=== PATIENT | female | born 1970 | race Caucasian/White ===

== ENCOUNTER → 2019-07-20 15:49 | Outpatient (CLI) | payer OTHER, SELFPAY ==
--- NOTE | ~2019-07-20 | US_ITS ---
EXAMINATION: US thyroid DATE: 07/20/2019 16:15 INDICATION: Disorder of thyroid, unspecified. TECHNIQUE: Multiple ultrasound images of the thyroid were obtained. COMPARISON: None. FINDINGS: The right thyroid lobe measures 5.7 x 1.2 x 1.3 cm. The left thyroid lobe measures 5.6 x 1.8 x 1.6 c m. In the left thyroid lobe, there is a 2.6 cm solid, hypoechoic, qdoqm-mgis-uasq nodule with smooth margin and peripheral calcifications (TI-RADS TR4). In the left thyroid lobe, there is a 1.1 cm mag d, hypoechoic, vqfxe-wlkj-osrq nodule with smooth margin without echogenic foci (TR4). In the left th yroid lobe, there is a 1.5 cm solid, hypoechoic, wjkta-xpnf-ibpz nodule with ill-defined margin witho ut echogenic foci (TR4). In the right thyroid lobe, there is a 1.4 cm almost completely cystic nodule (TR1). IMPRESSION: 1. Multinodular goiter. Ultrasound-guided fine-needle aspiration of the 2.6 cm and 1.5 cm left thyroi d nodules is recommended. Reviewed, dictated and finalized at location A. RESCUE CRAFTSMAN IMPRESSION: 1. Multinodular goiter. Ultrasound-guided fine-needle aspiration of the 2.6 cm and 1.5 cm left thyroid nodules is recommended.
== END ==
PROVIDERS: PCP Family Medicine; Visit Provider Physician Assistant
DX: E04.2 Nontoxic multinodular goiter (principal)
CPT/HCPCS: 76536

== ENCOUNTER 2019-08-05 13:10 | Outpatient (CLI) | payer OTHER, SELFPAY ==
--- NOTE | ~2019-08-05 | US_ITS ---
EXAMINATION: US FNA additional, US FNA w image guidance DATE: 08/05/2019 14:17 INDICATION: Nontoxic thyroid nodules TECHNIQUE: A time-out was performed to verify the patient's name, date of , and procedure to be performed . The procedure and its benefits and risks were discussed with the patient. Risks specifically discus sed included bleeding and infection. The patient understood the risks and agreed to proceed. The neck was prepped and draped in the usual sterile manner. 4 mL 1% lidocaine was used for local anesthesia . 6 passes were made with a 25G needle into the nodule at the inferior pole of the left thyroid. Subs equently 6 passes were with a 25G needle into the nodule at the mid left thyroid. Appropriate needle location was documented with continuous sonographic guidance. A sterile bandage was applied. There w ere no immediate complications. FINDINGS: Grayscale ultrasound images demonstrate biopsy needles advanced first into a 1.6 x 1.3 x 1.3 cm solid isoechoic nodule with internal echogenic foci at the inferior left thyroid. Subsequent images demons trate biopsy needles advanced into the 2.4 x 1.6 x 1.9 cm peripherally calcified solid and cystic nod ule at the mid left thyroid. IMPRESSION: 1. Successful ultrasound-guided fine needle aspiration of a pair of nodules in the mid and inferior left thyroid. Reviewed, dictated and finalized at location A. DIEM NURSE IMPRESSION: 1. Successful ultrasound-guided fine needle aspiration of a pair of nodules in the mid and inferior left thyroid.
== END 2019-08-05 13:11 | disposition home or self-care (01) ==
PROVIDERS: PCP Family Medicine; Visit Provider Family Medicine
DX: E04.1 Nontoxic single thyroid nodule (principal)
CPT/HCPCS: 10005; 10006; 88108; 88173

== ENCOUNTER 2020-03-30 15:09 | Outpatient (CLI) | payer OTHER, SELFPAY ==
--- NOTE | ~2020-03-30 | MM_ITS ---
EXAMINATION: MM screening arpit BI w bucky HISTORY: Screening TECHNIQUE: Craniocaudal and mediolateral oblique 3-D tomosynthesis images were obtained and synthetic 2-D images were generated. CAD analysis was submitted and interpreted. COMPARISON: Comparison to multiple prior studies sequentially, with oldest reviewed study dated 04/23. BREAST PARENCHYMAL COMPOSITION: There are scattered areas of fibroglandular density. FINDINGS: There is a mass in the subareolar location of the left breast measuringr 6 mm. The right br east is stable without evidence for malignancy. IMPRESSION: 1. New 6 mm left breast mass. 2. Additional mammographic views and possible breast ultrasound are recommended. BI-RADS Category 0: Incomplete: Needs additional imaging evaluation. Reviewed, dictated and finalized at location A. IMPRESSION: 1. New 6 mm left breast mass. 2. Additional mammographic views and possible breast ultrasound are recommended . BI-RADS Category 0: Incomplete: Needs additional imaging evaluation.
== END 2020-03-30 15:10 | disposition home or self-care (01) ==
LOC: ANHIMG 15:11
PROVIDERS: PCP Family Medicine; Visit Provider Obstetrics & Gynecology
DX: Z12.31 Encounter for screening mammogram for malignant neoplasm of breast (principal); R92.8 Other abnormal and inconclusive findings on diagnostic imaging of breast
CPT/HCPCS: 77063; 77067

== ENCOUNTER 2020-04-24 13:52 | Outpatient (CLI) | payer OTHER, SELFPAY ==
--- NOTE | ~2020-04-24 | MMUS_ITS ---
EXAMINATION: MM diagnostic mammo unilat LT, US breast LT limited HISTORY: Follow-up left breast mass TECHNIQUE: Additional 3-D tomosynthesis images of the left breast were performed and synthetic 2-D im ages were generated. CAD analysis was submitted and interpreted. High resolution left breast ultrasou nd was performed. COMPARISON: Comparison to multiple prior studies sequentially, with oldest reviewed study dated 11/2013. BREAST PARENCHYMAL COMPOSITION: Breast composed of scattered areas of fibroglandular density. FINDINGS: MAMMOGRAPHIC FINDINGS: There is a persistent circumscribed 6 mm mass in the subareolar location of the left breast at approx imately the 12:00 position. ULTRASOUND: Left breast ultrasound: In the retroareolar region of the left breast there is a 4 mm cyst corresponding to the mass identifi ed on mammography. IMPRESSION: 1. No evidence for malignancy in the left breast. Benign cyst. 2. Routine yearly screening mammogram and regular clinical breast examination are recommended. BI-RADS Category 2: Benign finding(s). Reviewed, dictated and finalized at location A. NESS CONSULT IMPRESSION: 1. No evidence for malignancy in the left breast. Benign cyst. 2. Routine yearly screening mammogram and regular clinical breast examination a re recommended. BI-RADS Category 2: Benign finding(s).
== END 2020-04-24 13:53 | disposition home or self-care (01) ==
PROVIDERS: PCP Family Medicine; Visit Provider Obstetrics & Gynecology
DX: R92.8 Other abnormal and inconclusive findings on diagnostic imaging of breast (principal)
CPT/HCPCS: 76642; 77065

== ENCOUNTER → 2021-02-08 12:19 | Outpatient (CLI) | payer OTHER, SELFPAY ==
--- NOTE | ~2021-02-08 | MR_ITS ---
EXAMINATION: MR cervical spine wo con DATE: 02/08/2021 13:22 INDICATION: Neck pain. Left-sided radiculopathy. TECHNIQUE: Magnetic resonance imaging (MRI) of the cervical spine was performed without intravenous c ontrast. Sequences included sagittal T2-weighted FSE, sagittal STIR FSE, sagittal T1-weighted FSE, ax ial MERGE, and axial T2-weighted FSE. COMPARISON: Thyroid ultrasound 08/05/2019. FINDINGS: There is kyphosis of cervical spine. Vertebral body heights are normal. There is moderately decreased disc height at C3-C4 and mildly decreased disc height at C5-C6. The spinal cord signal int ensity is normal. There is a 1.5 cm nodule in left thyroid lobe with benign pathology at biopsy on . The following disc levels are specifically discussed: C2-C3: There is a central extrusion. There is no uncovertebral joint osteoarthritis. There is mild bi lateral facet joint osteoarthritis. There is no neural foraminal stenosis. There is no central canal stenosis. C3-C4: The disc is bulging. There is severe bilateral uncovertebral joint osteoarthritis. There is mi ld bilateral facet joint osteoarthritis. There is mild bilateral neural foraminal stenosis. There is mild central canal stenosis with ventral indentation of the spinal cord. C4-C5: The disc is bulging. There is mild right uncovertebral joint osteoarthritis. There is severe r ight and moderate left facet joint osteoarthritis. There is mild right neural foraminal stenosis. The re is mild central canal stenosis. C5-C6: There is a large central extrusion with inferior extension to the C6-C7 disc level. There is m ild bilateral uncovertebral joint osteoarthritis. There is moderate right and mild left facet joint o steoarthritis. There is mild right neural foraminal stenosis. There is severe central canal stenosis with ventral and dorsal indentation of the spinal cord. C6-C7: The disc is bulging. There is mild bilateral uncovertebral joint osteoarthritis. There is mild right facet joint osteoarthritis. There is no neural foraminal stenosis. There is mild central canal stenosis. C7-T1: The disc does not extend beyond the endplate margin. There is no uncovertebral joint osteoarth ritis. There is severe right and moderate left facet joint osteoarthritis. There is mild bilateral ne ural foraminal stenosis. There is no central canal stenosis. IMPRESSION: 1. Severe cervical spondylosis. Of note, a large extrusion at C5-C6 causes severe central canal steno sis at C6. Reviewed, dictated and finalized at location B. IMPRESSION: 1. Severe cervical spondylosis. Of note, a large extrusion at C5-C6 causes odilon re central canal stenosis at C6.
== END ==
PROVIDERS: PCP Family Medicine; Visit Provider Chiropractor
DX: M54.2 Cervicalgia (principal); M47.812 Spondylosis without myelopathy or radiculopathy, cervical region; M48.02 Spinal stenosis, cervical region
CPT/HCPCS: 72141

== ENCOUNTER → 2022-07-17 08:36 | Outpatient (CLI) | payer BC, SELFPAY ==
--- NOTE | ~2022-07-17 | MR_ITS ---
MRI of the lumbar spine Clinical History: Back pain, right-sided sciatica Technique: Axial T2-weighted images, and sagittal T1-weighted, T2-weighted, and T2 fat-sat images wer e acquired. Following intravenous administration of 18 cc MultiHance gadolinium, T1-weighted fat-sat imaging was performed in the axial and sagittal planes. Findings: There is posterior fusion hardware from L4 to L5, with bilateral rods and transpedicular sc rews present. This fusion cage present at the L4-L5 disc space, fusion across the disc space. There i s associated L5 laminectomy. No acute fracture or subluxation seen. No other bone marrow signal abnor mality is identified. At L1-L2, there is no disc bulge or herniation. No spinal canal stenosis or neural foraminal narrowin g. At L2-L3, there is no disc bulge or herniation. There is mild to moderate facet arthropathy. No spina l canal stenosis or neural foraminal narrowing. L3-L4, there is degenerative disc narrowing with disc bulge and facet arthropathy. These factors cont ribute to moderate to severe thecal sac compression at this level. Bilateral neural foramina are pres erved. At L4-L5, there is no disc bulge or herniation. No spinal canal stenosis or neural foraminal narrowin g. At L5-S1, there is very small central disc protrusion, with moderate facet arthropathy. No spinal can al stenosis. No definite neural foraminal narrowing. Paravertebral soft tissues are unremarkable aside from expected postoperative changes at the surgical level. No abnormal postcontrast enhancement identified. Impression: Multifactorial moderate to severe thecal sac compression/spinal canal stenosis at L3-L4, as detailed above. Postoperative changes at the L4-L5 level, as detailed above. Minimal degenerative change at L5-S1, as detailed above. Reviewed, dictated and finalized at location M. ROOM ATTENDANT Impression: Multifactorial moderate to severe thecal sac compression/spinal canal stenosis at L3-L4, as detailed above. Postoperative changes at the L4-L5 level, as detailed above. Minimal degenerative change at L5-S1, as detailed above.
== END ==
PROVIDERS: PCP Family Medicine; Visit Provider Chiropractor
DX: M51.37 Other intervertebral disc degeneration, lumbosacral region (principal)
CPT/HCPCS: 72158; A9577

== ENCOUNTER → 2022-11-22 13:22 | Outpatient (CLI) | payer BC, SELFPAY ==
--- NOTE | ~2022-11-22 | CT_ITS ---
EXAMINATION: CT cervical spine wo con DATE: 11/22/2022 13:43 INDICATION: Neck pain. TECHNIQUE: Computed tomography (CT) of the cervical spine was performed without intravenous contrast. Automated exposure control and iterative reconstruction technique were employed. The dose-length pro duct was 361.48 mGy-cm. COMPARISON: Cervical spine MRI 02/08/2021, thyroid ultrasound 07/20/19 FINDINGS: Again seen is a 1.9 cm nodule in left thyroid lobe status post benign biopsy on 08/05/19. Th ere is mild kyphosis of cervical spine. Vertebral body heights are normal. There are changes of anter ior fusion procedures at C5-C6 with interbody devices and screws. There is moderately decreased disc height at C3-C4 and mildly decreased disc height at C4-C5. The following disc levels are specifically discussed: C2-C3: There is mild left uncovertebral joint osteoarthritis. There is mild bilateral facet joint ost eoarthritis. There is mild left neural foraminal stenosis. There is mild central canal stenosis. C3-C4: There is severe bilateral uncovertebral joint osteoarthritis. There is severe bilateral facet joint osteoarthritis. There is mild bilateral neural foraminal stenosis. There is mild central canal stenosis. C4-C5: There is mild bilateral uncovertebral joint osteoarthritis. There is severe bilateral facet keyonna int osteoarthritis. There is mild right neural foraminal stenosis. There is mild central canal stenos is. C5-C6: There is no uncovertebral joint hypertrophy. There is moderate right and mild left facet joint osteoarthritis. There is no neural foraminal stenosis. There is no central canal stenosis. C6-C7: There is mild right and moderate left uncovertebral joint hypertrophy. There is severe right a nd moderate left facet joint osteoarthritis. There is mild bilateral neural foraminal stenosis. There is no central canal stenosis. C7-T1: There is no uncovertebral joint osteoarthritis. There is severe bilateral facet joint osteoart hritis. There is mild bilateral neural foraminal stenosis. There is no central canal stenosis. IMPRESSION: 1. Moderate cervical spondylosis. 2. Anterior fusion procedures at C5-C6 and C6-C7. Reviewed, dictated and finalized at location A.
== END ==
PROVIDERS: PCP Family Medicine
DX: M47.812 Spondylosis without myelopathy or radiculopathy, cervical region (principal); Z98.1 Arthrodesis status
CPT/HCPCS: 72125

== ENCOUNTER → 2023-03-05 12:50 | Outpatient (CLI) | payer BC, SELFPAY ==
--- NOTE | ~2023-03-05 | MR_ITS ---
EXAMINATION: MR cervical spine wo/w con DATE: 03/05/2023 13:35 INDICATION: Chronic neck pain. Bilateral arm weakness. TECHNIQUE: Magnetic resonance imaging (MRI) of the cervical spine was performed without with 19 mL Mu ltiHance intravenous contrast. COMPARISON: Cervical spine MRI 02/08/2021, CT 11/22/2022 FINDINGS: There is kyphosis of cervical spine. There are changes of anterior fusion procedures at C5- C6 and C6-C7 with interbody devices. There is moderately decreased disc height at C3-C4 and mildly de creased disc height at C4-C5. The following disc levels are specifically discussed: C2-C3: The disc does not extend beyond the endplate margin. There is mild left uncovertebral joint os teoarthritis. There is severe bilateral facet joint osteoarthritis. There is mild left neural foramin al stenosis. There is no central canal stenosis. C3-C4: This is bulging. There is severe bilateral uncovertebral joint osteoarthritis. There is severe bilateral facet joint osteoarthritis. There is mild right and moderate left neural foraminal stenosi s. There is mild central canal stenosis with ventral indentation of the spinal cord. C4-C5: The disc is bulging. There is mild bilateral uncovertebral joint osteoarthritis. There is odilon re bilateral facet joint osteoarthritis. There is mild bilateral neural foraminal stenosis. There is mild central canal stenosis. C5-C6: There is no uncovertebral joint hypertrophy. There is no facet joint hypertrophy. There is no neural foraminal stenosis. There is no central canal stenosis. C6-C7: There is moderate right and severe left uncovertebral joint hypertrophy. There is severe right and moderate left facet joint hypertrophy. There is mild right and moderate left neural foraminal st enosis. There is no central canal stenosis. C7-T1: There is a central protrusion. There is no uncovertebral joint osteoarthritis. There is severe bilateral facet joint osteoarthritis. There is mild bilateral neural foraminal stenosis. There is no central canal stenosis. IMPRESSION: 1. Moderate cervical spondylosis. 2. Anterior fusion procedures at C5-C6 and C6-C7. Reviewed, dictated and finalized at location A.
== END ==
PROVIDERS: PCP Family Medicine; Visit Provider Chiropractor
DX: R20.0 Anesthesia of skin (principal); M47.892 Other spondylosis, cervical region; Z98.1 Arthrodesis status
CPT/HCPCS: 72156; A9577

== ENCOUNTER 2024-02-19 15:33 | Outpatient (CLI) | payer BC, SELFPAY ==
--- NOTE | ~2024-02-19 | US_ITS ---
EXAMINATION: US carotid duplex BI DATE: 02/19/2024 16:13 INDICATION: Muscle spasms left neck TECHNIQUE: Grayscale, color Doppler, and pulsed Doppler images of the cervical carotid arteries were obtained. The degree of vessel stenosis is placed in one of the following categories: normal, <50%, 5 0-69%, >=70% but less than near-occlusion, near-occlusion, or total occlusion. Note that percent sten osis relative to normal distal artery lumen diameter is indirectly measured from velocity measurement s as described by Isai, et al. Radiology 2003; [id number]:340-346. Notes: Normal: Peak systolic velocity <125 centimeters/sec and no plaque <50%. Peak systolic velocity <125 ( EDV <40; ICA/CCA PSV ratio <2.0; used these factors only a tandem lesions or low cardiac output or co ntralateral disease) 50-69 %: PSV 125-230 (EDV 40-100; ratio 2-4) >= 70% but less than near occlusion: PSV greater than 230 (EDV > 100; ratio> 4.0) Near Occlusion: PSV that is variable; markedly narrowed lumen Occlusion: Absent flow on color/spectral Doppler and no lumen on bliss scale. COMPARISON: None. FINDINGS: RIGHT: The right common carotid artery (CCA) peak systolic velocity (PSV) is 85 cm/s. The right internal car otid artery (ICA) PSV is 49 cm/s. The right ICA end-diastolic velocity (EDV) is 25 cm/s. The right IC A/CCA PSV ratio is 0.9. The external carotid artery (ECA) PSV is 104 cm/s. There is antegrade flow in the right vertebral artery. LEFT: The left CCA PSV is 79 cm/s. The left ICA PSV is 65 cm/s. The left ICA EDV is 22 cm/s. The left ICA/C CA PSV ratio is 0.8. The ECA PSV is 76 cm/s. There is antegrade flow in the left vertebral artery. IMPRESSION: 1. Less than 50% stenosis in the right internal carotid artery by sonographic criteria. 2. Less than 50% stenosis in the left internal carotid artery by sonographic criteria. Reviewed, dictated and finalized at location B. IMPRESSION: 1. Less than 50% stenosis in the right internal carotid artery by sonographic c walt. 2. Less than 50% stenosis in the left internal carotid artery by sonographic cr srini.
== END 2024-02-19 15:34 | disposition home or self-care (01) ==
LOC: ANHIMG 15:39
PROVIDERS: PCP Family Medicine; Visit Provider Student in an Organized Health Care Education/Training Program
DX: I65.23 Occlusion and stenosis of bilateral carotid arteries (principal)
CPT/HCPCS: 93880

== ENCOUNTER 2024-06-09 15:53 | Outpatient (CLI) | payer BC, SELFPAY ==
--- NOTE | ~2024-06-09 | MM_ITS ---
EXAMINATION: MM screening arpit BI w bucky HISTORY: Screening TECHNIQUE: Craniocaudal and mediolateral oblique 3-D tomosynthesis images were obtained and synthetic 2-D images were generated. CAD analysis was submitted and interpreted. COMPARISON: Comparison to multiple prior studies sequentially, with oldest reviewed study dated 04/23. BREAST PARENCHYMAL COMPOSITION: Not dense: There are scattered areas of fibroglandular density. FINDINGS: There is no evidence of suspicious mass, calcification, or architectural distortion to sugg est malignancy in either breast. There has been no suspicious interval change. IMPRESSION: 1. No mammographic evidence of malignancy. 2. Recommend routine screening mammography in one year. BI-RADS Category 1: Negative Reviewed, dictated and finalized at location B. CAD DETAILER
== END 2024-06-09 15:54 | disposition home or self-care (01) ==
LOC: ANHIMG 15:54
PROVIDERS: PCP Family Medicine; Visit Provider Student in an Organized Health Care Education/Training Program
DX: Z12.31 Encounter for screening mammogram for malignant neoplasm of breast (principal)
CPT/HCPCS: 77063; 77067

== ENCOUNTER 2024-10-06 10:41 | Outpatient (CLI) | payer BC, SELFPAY ==
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
--- OUTSIDE RECORDS SUMMARY | 2024-10-06 11:58 | XMS_ITS | Clinical Summary ---
Author Organization [facility] Address [address] [place] [address] Care Team Providers Care Bakery Products Checker Name Role Phone Isaiah Rose MD Primary Care Provider [phone] Source Comments [facility],non-owned Affiliates and Associated Physician Practices is amultiple site organization consisting of ambulatory clinics and hospital sitesin [place], [place], [place] and [place]. This disclosure is being madepursuant to the Care Everywhere program and may not contain all information available regarding this patient. Last updated 18.[facility] Allergies Active Allergy Reactions Criticality Noted Date Comments Latex Rash Medium 08/04/2013 Suture Material Rash Medium 08/04/2013 Medications * Be aware that medications may not be up to date on this document. Alwaysverify current medications with the patient. Venlafaxine HCl (EFFEXOR PO) Active OMEPRAZOLE PO Active AmLODIPine Besylate (NORVASC PO) Active ATORVASTATIN CALCIUM PO Active Montelukast Sodium (SINGULAIR PO) Activ e Valsartan (DIOVAN PO) Active fluticasone propionate (FLONASE) 50 MCG/ACT nasal sprayIndication s:Acute maxillary sinusitis, recurrence not specified [place] 2 sprays into each nostril once daily 1 bottles 8 Active meclizine (ANTIVERT) 25 MG tablet Take 1 tablet by mouth 3 times daily as needed for Dizziness 30 tablet 8 Active albuterol HFA (PROVENTIL;VENT ARJUN;PROAIR) 108 (90 BASE) MCG/ACT inhalerIndicati ons:Hx of wheezing Inhale 2 puffs by mouth every 6 hours as needed 1 Inhaler 9 Active Additional Information Patient not taking.Reported on 10/24/2020 Family History Medical History Relation Name Comments Cancer - Colon Father Diabetes - Type 2 Father Hypertension Father Diabetes - Type 2 Mother Hypertension Mother Relation Name Status Comments Father Mother Social History Tobacco Use Types Packs/Day Years Used Date Smoking Tobacco: Never Smokeless Tobacco: Never PHQ-2 Answer Date Recorded PHQ2 TOTAL SCORE 0 10/24/2020 Comments No Sex and Gender Information Value Date Recorded Sex Assigned at Not on file 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 Gender Identity Not on file Sexual Orientation Not on file Last Filed Vital Signs Vital Sign Reading Time Taken Comments Blood Pressure 122/82 10/24/2020 6:30 PM CDT Pulse 97 10/24/2020 6:30 PM CDT Temperature 36.6 C (97.8 F) 10/24/2020 6:30 PM CDT Respiratory Rate 18 10/24/2020 6:30 PM CDT Oxygen Saturation 98% 10/24/2020 6:30 PM CDT Inhaled Oxygen Concentration - - Weight 86.2 kg (190 lb) 10/24/2020 6:30 PM CDT Height 152.4 cm (5') 10/24/2020 6:30 PM CDT Body Mass Index 37.11 10/24/2020 6:30 PM CDT Plan of Treatment Health Maintenance Due Date Last Done Comments COLOGUARD (AGES 45-75) - COL ON CA SCREENING 1972 COLON MONITORING 1972 COLONOSCOPY - COLON CA SCREENING 1972 CT COLONOGRAPHY - COLON CA SCREENING 1972 Colorectal Cancer Screening 1972 FIT - COLON CA SCREENING 1972 FLEX SIG - COLON CA SCREENING 1972 MAMMOGRAM 1972 HIV SCREENING 02/08/1987 HEPATITIS C SCREENING 02/04/1990 DTAP/TDAP/TD VACCINES (1 - Tdap) 02/08/1991 HEPATITIS B VACCINE (1 of 3 - + 3-dose series) 02/08/1991 SCREENING FOR DIABETES 10/24/2020 PNEUMOCOCCAL VACCINE 50+ (1 of 1 - PCV) 02/08/2022 ZOSTER VACCINE (1 of 2) 02/08/2022 COVID-19 VACCINE (2 - 2023-2 5 season) 2024 08/27/2020 DEPRESSION SCREENING 06/23/2024 INFLUENZA VACCINE (Season Ended) 2025 HIB VACCINE Aged Out No longer eligi ble based on patient's age to complete this topic HPV VACCINE Aged Out No longer eligi ble based on patient's age to complete this topic MENINGOCOCCAL (Group B) VACC INE SHARED DECISION-MAKING Aged Out No longer eligibl e based on patient's age to complete this topic MENINGOCOCCAL GROUPS A/C/Y/W VACCINE Aged Out No longer eligible b ased on patient's age to complete this topic Insurance [facility] Advance Directives Documents on File Type Date Recorded 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
--- OUTSIDE RECORDS SUMMARY | 2024-10-06 11:58 | XMS_ITS | Continuity of Care Document ---
Author Organization [facility] Address [address] [place] [address] [place] [address] Phone Care Team Providers Care Strike Warfare/Missile Systems Officer Name Role Phone Isaiah Rose MD Unavailable Unavailable Allergies, Adverse Reactions, Alerts Substance Reaction Status Criticality No Known Allergies Active No Inform ation Medications Medication Instructions Dosage Effective Dates (start - stop) Status Comments Cipro 500 mg tablet take 1 tablet by ora l route every 12 hours 500 MG - Active Adderall 20 mg tablet take 1.5 Tablet (3 0MG) by oral route every day 30 MG - Active omeprazole 20 mg capsule,delayed release take 1 capsule by oral route every day before a meal 20 MG - Active Diovan 320 mg tablet take 1 tablet (320M G) by oral route every day 320 MG - Active metformin ER 750 mg tablet,extended release 24 hr take 1 tablet (750MG) by oral route every day with the evening meal 750 MG - Active Lipitor 40 mg tablet take 1 tablet (40MG ) by oral route every day 40 MG - Active Amaryl 2 mg tablet take 1 tablet (2MG) by oral route every day - Active Procedures Procedure Date OFFICE/OUTPATIENT VISIT, EST OFFICE/OUTPATIENT VISIT, EST PREV VISIT, EST, AGE 40-64 OFFICE/OUTPATIENT VISIT, EST PREV VISIT, EST, AGE 40-64 OFFICE/OUTPATIENT VISIT, EST OFFICE/OUTPATIENT VISIT, EST OFFICE/OUTPATIENT VISIT, EST OFFICE/OUTPATIENT VISIT, EST Advance Directives Directive Yes / No Effective Date File Name No Information Encounters Encounter Description Practice Location Reason(s) For Visit Diagnoses Date Provider Providers Copied on Encounter [facility], [address], [place], [place], [id number], tel:[phone] [facility] No Information 8 5 Milton Colon. [address], [place], [place], [address] , [place]. tel:[phone] [facility], [address], [place], [place], [address], [place] tel:[phone] [facility] No Information 5 Milton Colon. [address], [place], [place], [address] , [place]. tel:[phone] Referring Provider: Isaiah Rose, [address], [place], [place], [address]. tel:[phone] [facility], [address], [place], [place], [address], [place] tel:[phone] [facility] No Information 5 Milton Colon. [address], [place], [place], [address] , [place]. tel:[phone] [facility], [address], [place], [place], [address], [place] tel:[phone] [facility] No Information 5 Milton Colon. [address], [place], [place], [address] , [place]. tel:[phone] OFFICE/OUTPA TIENT VISIT, EST [facility], [address], [place], [place], [address], [place] tel:[phone] [facility] proteinuria (chief complaint)DM (chief complaint)HL P (chief complaint)GE RD (chief complaint)Si nus (chief complaint) Dietary surveillance and counselingDiabete s Mellitus Type 2, UncomplicatedOthe r and unspecified hyperlipidemiaPro teinuriaGERD Sep- 5 Rose Isaiah. [address], [address], [place], [place], [address] , . tel:[phone] Referring Provider: Isaiah Rose, [address], [place], [place], [address]. tel:[phone] OFFICE/OUTPA TIENT VISIT, EST [facility], [address] [place], [address], [place] tel:[phone] [facility] proteinuria (chief complaint)Fa tty liver (chief complaint)TG (chief complaint)GE RD (chief complaint) Dietary surveillance and counselingDiabeti c NephropathyHypert ension, UnspecifiedAttent ion deficit disorder of childhood without mention of hyperactivityGERD 4 Milton Colon. [address], [address], [place], [place], [address] , . tel:[phone] Referring Provider: [facility] [address] [place], [place], [address]. tel:[phone] PREV VISIT, EST, AGE 40-64 [facility], [address] [place], [address], [place] tel:[phone] [facility] Physical (chief complaint) Dietary surveillance and counselingRoutine Medical ExamRoutine Medical Exam 4 Milton Colon. [address], [address] [place], [address] , [place]. tel:[phone] Referring Provider: Isaiah Rose, [address], [place], [place], [address]. tel:[phone] OFFICE/OUTPA TIENT VISIT, EST [facility], [address] [place], [address], tel:[phone] [facility] GERD (chief complaint)HT N (chief complaint)AD D (chief complaint)HL P (chief complaint)DM (chief complaint) Dietary surveillance and counselingHyperte nsion, UnspecifiedOther and unspecified hyperlipidemiaDia betes Mellitus Type 2, UncomplicatedGERD 4 Milton Colon. [address], [address], [place], [place], [address] , [place]. tel:[phone] Referring Provider: Isaiah Rose, [address], [place], [place], [address]. tel:[phone] PREV VISIT, EST, AGE 40-64 [facility], [address], [place], [place], [address], [place] tel:[phone] [facility] Physical (chief complaint) Unspecified chronic liver disease without mention of alcoholDietary surveillance and counselingRoutine Medical ExamGERDOther and unspecified hyperlipidemiaRou torrey Medical Exam 3 Milton Colon. [address], [address], [place], [place], [address] , [place]. tel:[phone] Referring Provider: Isaiah Rose, [address], [place], [place], [address]. tel:[phone] OFFICE/OUTPA TIENT VISIT, [facility], [address], [place], [place], [address], [place] tel:[phone] [facility] HLP (chief complaint)HT N (chief complaint)DM (chief complaint)AD D (chief complaint)ba ck pain (chief complaint) Dietary surveillance and counselingUnspeci fied chronic liver disease without mention of alcoholDiabetes Mellitus Type 2, UncomplicatedOthe r and unspecified hyperlipidemiaLum bago 3 Milton Colon. [address], [address], [place], [place], [address] , [place]. tel:[phone] Referring Provider: Jojo Espinosa [address], [place], [place], [address]. tel:[phone] OFFICE/OUTPA TIENT VISIT, EST [facility], [address], [place], [place], [address], [place] tel:[phone] [facility] cough (chief complaint) Dietary surveillance and counselingOther acute sinusitisAttentio n deficit disorder of childhood without mention of hyperactivity 2 Milton Colon. [address], [place], [place], [address] , . tel:[phone] Referring Provider: Jojo Espinosa [facility], [place], [place], [address]. tel:[phone] OFFICE/OUTPA TIENT VISIT, EST [facility], [address] [place], [address], tel:[phone] [facility] DM (chief complaint)hy pertension (chief complaint)fa tty liver (chief complaint) Dietary surveillance and counselingHyperte nsion, UnspecifiedDiabet es Mellitus Type 2, UncomplicatedUnsp ecified chronic liver disease without mention of alcoholOther and unspecified hyperlipidemia 2 Milton Colon. [address], [place], [place], [address] , . tel:[phone] Referring Provider: Jojo Espinosa [place], [place], [address]. tel:[phone] Family History Family Member Type Diagnosis Age At Onset Brother Problem (finding) Alive and well Mother Problem (finding) Diabetes mellitus Father Problem (finding) Non-Hodgkin's lymphoma Payers Payer name Insurance type Covered libertarian ID Authoriza tion(s) No Information Social History Type Description Quantity Date Captured Comments Sex Female Smoking Status No Information Chief Complaint And Reason For Visit No Information Plan Of Treatment Date Type Action Status Goal Tdap. Due on due Goal Td vaccine. Due on 15 due Goal Pap/HPV testing. Due on due Goal Depression screening. Due on due Goal Mammogram. Due on 5 due Goal Mammogram. Due on 4 due History Of Present Illness Encounter Date Complaint History Of Prese nt Illness No Information Instructions Date Instruction Additional Infor erin Decrease caloric intake Related to Dietary surveillance counseling Physical activity counseling Rel ated to Dietary surveillance counseling Dietary counseling Related to Di etary surveillance counseling Decrease caloric intake Related to Dietary surveillance counseling Decrease caloric intake Related to Dietary surveillance counseling Dietary counseling Related to Di etary surveillance counseling Dietary counseling Related to Di etary surveillance counseling Decrease caloric intake Related to Dietary surveillance counseling Decrease caloric intake Related to Dietary surveillance counseling Dietary counseling Related to Di etary surveillance counseling Dietary counseling Related to Di etary surveillance counseling Decrease caloric intake Related to Dietary surveillance counseling Dietary counseling Related to Di etary surveillance counseling Decrease caloric intake Related to Dietary surveillance counseling Dietary counseling Related to Di etary surveillance counseling Decrease caloric intake Related to Dietary surveillance counseling Assessments Type Assessment Date No Information
--- OUTSIDE RECORDS SUMMARY | 2024-10-06 11:58 | XMS_ITS | Clinical Summary ---
Author Organization [facility] Address [address] [place] [address] Phone Care Team Providers Care Bulk Plant Agent Name Role Phone Katiuska Pompa MD Primary Care Provider [phone] Allergies Active Allergy Reactions Criticality Noted Date Comments Latex Rash Medium 08/04/2013 Propofol Rash,Itching,Other ( See Comments) High 03/01/2021 This allergy is questionable, not sure what is causing rash after surgery. Rash can last up to 3 months; redness, (internal itching) Unclassified Drug Other (See Comments),Rash High 08/04/2013 Suture-unknown if sutures causing this, but has after surgery; redness, itching, hives (internal itching) Medications pantoprazole (PROTONIX) 40 mg Tablet, Delayed Release (E.C.) Take 40 mg by mouth daily. 9 Active levocetirizine (Xyzal) 5 mg tablet Take 5 mg by mouth daily at bedtime. Active losartan (COZAAR) 100 mg tablet Take 100 mg by mouth daily. Active atorvastatin (LIPITOR) 40 mg tablet Take 40 mg by mouth daily. Active hydroCHLOROthiazi de 25 mg tablet Take 25 mg by mouth daily. Active montelukast (SINGULAIR) 10 mg tablet Take 10 mg by mouth daily. Active lamoTRIgine (LaMICtal) 25 mg tablet Take 25 mg by mouth daily at bedtime. Active fluticasone propionate (FLONASE) 50 mcg/spray Tabor, Suspension nasal inhaler Administer 1-2 Sprays in each nostril daily. Active Lidocaine (Salonpas, lidocaine,) 4 % Adhesive Patch, Medicated Apply 1 Patch to affected area every 12 hours. Apply to neck, back of left shoulder, front of left shoulder Active camphor-methyl salicyl-menthoL (SALONPAS) Adhesive Patch, Medicated Apply 1 Patch to affected area 2 times daily. Left shoulder, left wrist, left shoulder and neck Active buPROPion HCL (WELLBUTRIN XL) 150 mg Extended Release 24 hour tablet Take 150 mg by mouth daily in the morning. Active cyclobenzaprine (FLEXERIL) 10 mg tablet Take 1 Tablet (10 mg) by mouth every 8 hours as needed for Spasm. 42 Tablet 1 03/08/2021 11:22 AM CDT Active oxyCODONE-acetami nophen (Percocet) 5-325 mg tabletIndications :Cervical radiculopathy Take 1 Tablet by mouth every 4 hours as needed for Pain. Max Daily Amount: 6 Tablets 42 Tablet 03/08/2021 11:22 AM CDT 1 Active Social History Tobacco Use Types Packs/Day Years Used Date Smoking Tobacco: Never Smokeless Tobacco: Never Alcohol Use Standard Drinks/Week Comments Yes 1 (1 standard drink = 0.6 oz pur e alcohol) Comments No Sex and Gender Information Value Date Recorded Sex Assigned at Not on file Legal Sex Female 10:45 PM CDT Gender Identity Not on file Sexual Orientation Not on file Last Filed Vital Signs Vital Sign Reading Time Taken Comments Blood Pressure 136/81 03/08/2021 11:12 AM CDT Pulse 109 03/08/2021 11:00 AM CDT Temperature 36.9 C (98.4 F) 03/08/2021 11:00 AM CDT Respiratory Rate 16 03/08/2021 11:00 AM CDT Oxygen Saturation 100% 03/08/2021 11:00 AM CDT Inhaled Oxygen Concentration - - Weight 93.4 kg (206 lb) 03/07/2021 2:45 PM CDT Height 152.4 cm (5') 03/07/2021 2:45 PM CDT Body Mass Index 40.23 03/07/2021 2:45 PM CDT Plan of Treatment Health Maintenance Due Date Last Done Comments PNEUMOCOCCAL VACCINE 0-49 YEARS (1 of 2 - PCV) 978 DIABETES ANNUAL FOOT EXAM 02/08/1990 DIABETES ANNUAL RETINAL EXAM 02/08/1990 DIABETES HBA1C Q 6 MONTHS 02/08/1990 DIABETES MICROALBUMIN ANNUAL SCREEN 02/08/1990 LDL CHOLESTEROL ANNUAL 02/08/1990 DTAP/TDAP/TD VACCINES (1 - Tdap) 02/08/1991 HEPATITIS B VACCINES (1 of 3 - 19+ 3-dose series) 01/21 HPV/Cotest (21-29) 02/08/1993 PAP SMEAR 02/08/1993 CERVICAL CANCER SCREENING 02/08/2002 HPV/Cotest (30-65) 02/08/2002 PAP SMEAR 02/08/2002 BREAST CANCER SCREENING 2012 COLORECTAL SCREENING 02/08/2017 Colorectal Cancer Screening 02/08/2017 FIT-DNA Q 3 years 02/08/2017 FIT/FOBT Q 1 year 02/08/2017 Flex Sig/CT Colonography Q 5 years 02/08/2017 ZOSTER VACCINE (1 of 2) 02/08/2022 INFLUENZA VACCINE (#1) 2024 Medical Devices Implanted Type Area Environmental Journalist Device Identifier Shelf Expiration Date Model / Serial / Lot I Factor 5cc Implanted:Qty: 1 on 03/07/2021 by David Potter MD at [facility] Other N/A: Neck [employer] 10/21/2023 [id number] / / [id number] Description:ITEM ADD-RDJ SYDEA REQ#[id number] Screw Variable Angle 3.5mm X 14mm Self-Drilling Implanted:Qty: 2 on 03/07/2021 by David Potter MD at [facility] Screw N/A: Neck [employer] MED[employer] [id number] D-SP / / [id number] Description:1X ADD Csts Stand Alone Ifd 17w X 14d X 7h, 7 Degrees Implanted:Qty: 1 on 03/07/2021 by David Potter MD at [facility] Spine N/A: Neck [employer] MED[employer] CSTS-SA-MD0 707-SP / / [id number] Description:1X ADD Csts Stand Alone Ifd 17w X 14d X 8h, 7 Degrees Implanted:Qty: 1 on 03/07/2021 by David Potter MD at [facility] N/A: Neck [employer] CSTS-SA-MD0 708-SP / / [id number] Description:1X ADD Explanted Type Area Environmental Journalist Device Identifier Shelf Expiration Date Model / Serial / Lot Hemostatic Surgiflo 8ml W/Thrombin 2994 - Sna Explanted:Qty: 1 on 03/07/2021 by David Potter MD at [facility] Hemostatic N/A: Neck [employer] 07/23/2022 2994 / NA / [id number] Hemostatic Surgiflo 8ml W/Thrombin 2994 - Sna Explanted:Qty: 1 on 03/07/2021 by David Potter MD at [facility] Hemostatic N/A: Neck [employer] 07/23/2022 2994 / NA / [id number] Insurance [employer] OPEN ACCESS HMO RX [employer] Express Advance Directives For more information, please contact: [phone] * Full Code (Latest Code Status on File) Date Activated Date Inactivated Comments 03/07/2021 2:24 PM 03/08/2021 2:24 PM Care Teams Bulk Plant Agent Relationship Specialty Start Date End Date Katiuska Pompa MD [address] [place] [address] PCP - General Family Practice 03/01/21
--- OUTSIDE RECORDS SUMMARY | 2024-10-06 11:58 | XMS_ITS | Clinical Summary ---
Author Organization [facility] Address [address] [address] Phone Care Team Providers Care Continuous Improvement Engineer Name Role Phone Katiuska Pompa MD Primary Care Provider [phone] Allergies No known active allergies Medications lamoTRIgine (LAMICTAL) 25 MG Tablet Take 25 mg by mouth daily. Active montelukast (SINGULAIR) 10 MG Tablet Take 10 mg by mouth every evening. Active atorvastatin (LIPITOR) 40 MG Tablet Take 40 mg by mouth daily. Active buPROPion HCl, Smoking Deter, (BUPROBAN PO) Take 150 mg by mouth daily. Active FLUTICASONE-SALM ETEROL IN take by inhalation. Active AZELASTINE HCL NA by Nasal route. Active pantoprazole (PROTONIX) 40 MG Tablet Delayed Response Take 1 Tab by mouth 2 times daily. 60 Tab 3 02/10/2019 Active Probiotic Product (PROBIOTIC DAILY PO) Take 1 Tab by mouth daily. Active ondansetron (ZOFRAN) 4 MG Tablet TAKE 1 TABLET BY MOUTH EVERY 8 HOURS NEEDED FOR NAUSEA 30 Tab 03/09/2019 Active raNITIdine (ZANTAC) 150 MG TabletIndication s:Gastroesophage al reflux disease without esophagitis Take 2 Tabs by mouth nightly. 180 Tab 03/10/2019 Active Family History Medical History Relation Name Comments Cancer Father nonhodgkins lym phoma Diabetes Father Hypertension Father Diabetes Mother Hypertension Mother Cancer Paternal Grandfather liver Relation Name Status Comments Father Diabetic, fatty liver, Cancer, Heart mur Mother Alive Diabetic Paternal Grandfather Social History Tobacco Use Types Packs/Day Years Used Date Smoking Tobacco: Never Smokeless Tobacco: Never Alcohol Use Standard Drinks/Week Comments Yes 0 (1 standard drink = 0.6 oz pur e alcohol) rarely Comments Unknown Sex and Gender Information Value Date Recorded Sex Assigned at Not on file Legal Sex Female 10:26 PM CDT Gender Identity Not on file Sexual Orientation Not on file Last Filed Vital Signs Vital Sign Reading Time Taken Comments Blood Pressure 176/105 03/10/2019 2:19 PM CDT ok to d/c per dr gutierrez-patient at baseline Pulse 96 03/10/2019 12:05 PM CDT Temperature 36 C (96.8 F) 03/10/2019 2:19 PM CDT Respiratory Rate 20 03/10/2019 2:19 PM CDT Oxygen Saturation 99% 03/10/2019 2:1 9 PM CDT Inhaled Oxygen Concentration - - Weight 90.7 kg (200 lb) 03/05/2019 1:00 PM CDT Height 152.4 cm (5') 03/05/2019 1:00 PM CDT Body Mass Index 39.06 03/05/2019 1:00 PM CDT Plan of Treatment Health Maintenance Due Date Last Done Comments Hepatitis C Virus (HCV) Screening 1972 TdaP Immunization 1972 Hepatitis B Immunization (1 of 3 - 19+ 3-dose series) 02/08/1991 Colonoscopy 02/08/2017 Colorectal Cancer Screening 02/08/2017 Cologuard 02/08/2022 Immunochemical Fecal Occult Blood 02/08/2022 Pneumococcal Immunization (5 0+ years) (1 of 1 - PCV) 02/08/2022 Zoster Immunization (1 of 2) 02/08/2022 Influenza Immunization (#1) 2024 SARS-COV-2 Immunization (3 - 2023-25 season) 2024 05/20/2021, 08/27/2020 Respiratory Syncytial Virus (RSV) Immunization (Adult) (1 - 1-dose 75+ series) 02/08/2047 Meningococcal Immunization (ACWY) Aged Out No longer eligible b ased on patient's age to complete this topic Rotavirus Immunization Aged Out No lo nger eligible based on patient's age to complete this topic Care Teams Continuous Improvement Engineer Relationship Specialty Start Date End Date Katiuska Pompa MD [address] [place] [address] PCP - General Family Medicine 12/11/18
--- OUTSIDE RECORDS SUMMARY | 2024-10-06 11:58 | XMS_ITS | Clinical Summary ---
Author Organization [facility] [address] Address [address] [place] [address] Care Team Providers Care Train Station Server Name Role Phone Costa Jacinto MD Primary Care Provider [phone] Allergies Active Allergy Reactions Criticality Noted Date Comments Latex Rash Medium 08/04/2013 Propofol Itching,Other (See comments),Rash High 03/01/2021 This allergy is questionable, not sure what is causing rash after surgery. Rash can last up to 3 months; redness, (internal itching) Unclassified Drug Other (See comments),Rash High 08/04/2013 Suture-unknown if sutures causing this, but has after surgery; redness, itching, hives (internal itching) Medications albuterol HFA (PROVENTIL HFA,VENTOLIN HFA,PROAIR HFA) 90 mcg/actuation inhaler Inhale 2 puffs every 6 (six) hours as needed 09/15/2018 Active atorvastatin (LIPITOR) 40 mg tablet Take 1 tablet (40 mg total) by mouth daily Active buPROPion (WELLBUTRIN) 75 mg tablet Take 1 tablet (75 mg total) by mouth every 8 hours Active fluticasone propionate, bulk, 100 % powder Active hydroCHLOROthia zide (HYDRODIURIL) 25 mg tablet Take 25 mg by mouth daily Active labetaloL (NORMODYNE,CLARK DATE) 100 mg tablet Take 1 tablet (100 mg total) by mouth every 12 hours Active lamoTRIgine (LaMICtal) 25 mg tablet Take 2 tablets (50 mg total) by mouth daily 02/04/2022 Active levocetirizine (XYZAL) 5 mg tablet Take 5 mg by mouth daily Active losartan (COZAAR) 100 mg tablet Take 100 mg by mouth daily 02/04/2022 Active meloxicam (MOBIC) 15 mg tablet Take 1 tablet by mouth daily 02/15/2021 Active montelukast (SINGULAIR) 4 mg chewable tablet Active Contrave 8-90 mg tablet extended release 01/07/[address] (PROTONIX) 40 mg EC tablet Take 1 tablet (40 mg total) by mouth every morning 02/04/2022 Active Ozempic 0.25 mg or 0.5 mg (2 mg/3 mL) pen injector injection INJECT 0.5 MG UNDER THE SKIN WEEKLY FOR 4 WEEKS 02/19/2023 Active Active Problems No known active problems Medical History Medical History Date Comments Hypertension Hyperlipidemia Depression Seasonal allergies GERD (gastroesophageal reflux disease) Social History Tobacco Use Types Packs/Day Years Used Date Smoking Tobacco: Never Assessed Comments Unknown Sex and Gender Information Value Date Recorded Sex Assigned at Not on file Legal Sex Female 12:57 AM ASSISTANT FINANCE DIRECTOR Gender Identity Female 02/26/2022 8:57 AM CDT Sexual Orientation Not on file Obstetrics History Last Filed Vital Signs Vital Sign Reading Time Taken Comments Blood Pressure 130/90 07/29/2023 6:21 PM ASSISTANT FINANCE DIRECTOR Pulse 79 07/29/2023 6:21 PM ASSISTANT FINANCE DIRECTOR Temperature 36.9 C (98.4 F) 07/29/2023 6:21 PM ASSISTANT FINANCE DIRECTOR Respiratory Rate 20 07/29/2023 6:21 PM ASSISTANT FINANCE DIRECTOR Oxygen Saturation 98% 07/29/2023 6:21 PM ASSISTANT FINANCE DIRECTOR Inhaled Oxygen Concentration - - Weight 96.6 kg (213 lb) 07/29/2023 6:21 PM ASSISTANT FINANCE DIRECTOR Height 152.4 cm (5') 07/29/2023 6:21 PM ASSISTANT FINANCE DIRECTOR Body Mass Index 41.6 07/29/2023 6:21 PM ASSISTANT FINANCE DIRECTOR Plan of Treatment Health Maintenance Due Date Last Done Comments Breast Cancer Screening-Mammogram 1972 Cervical Cancer Screening 1972 Colon Cancer Screening-Colonoscopy 1972 Depression Screening 1972 Hepatitis C Screening 1972 DTaP/Tdap/Td Vaccine (1 - Tdap) 02/08/1983 Hepatitis B Screening 02/08/1990 Regular Well Visit/Exam 18-64 02/08/1990 Zoster Vaccine (1 of 2) 02/08/2022 Covid-19 Vaccine (3 2023-2 5 season) 2024 05/20/2021, 08/27/2020 Influenza Vaccine (#1) 2024 05/20/2021 Pneumococcal vaccine <65 Aged Out No longer eligible based on patient's age to complete this topic Insurance Soocial OOS Soocial OOS Care Teams Train Station Server Relationship Specialty Start Date End [place] [address] PCP - General Family Medicine 02/26/22
--- OUTSIDE RECORDS SUMMARY | 2024-10-06 11:58 | XMS_ITS | Continuity of Care Document ---
Author Organization [facility] Address [address] [place] [address] Phone Care Team Providers Care Installment Account Checker Name Role Phone Mario Clark MD Unavailable Unavailable Allergies, Adverse Reactions, Alerts Substance Reaction Status Criticality latex Active No Information suture Active No Information Medications Medication Instructions Dosage Effective Dates (start - stop) Status Comments Naprosyn 500 mg tablet take 1 tablet by oral route 2 times every day with food 500 MG - Active METFORMIN HCL (unknown strength) Not Available - Active AMARYL (unknown strength) Not Available - Active DIOVAN (unknown strength) Not Available - Active Procedures Procedure Date OFFICE/OUTPATIENT VISIT EST OFFICE/OUTPATIENT VISIT EST MU Reporting OFFICE/OUTPATIENT VISIT EST MU Reporting POSTOP FOLLOW-UP VISIT MU Reporting POSTOP FOLLOW-UP VISIT MU Reporting POSTOP FOLLOW-UP VISIT MU Reporting OFFICE/OUTPATIENT VISIT EST MU Reporting OFFICE/OUTPATIENT VISIT EST MU Reporting OFFICE/OUTPATIENT VISIT EST MU Reporting OFFICE/OUTPATIENT VISIT EST MU Reporting OFFICE/OUTPATIENT VISIT NEW Advance Directives Directive Yes / No Effective Date File Name No Information Encounters Encounter Description Practice Location Reason(s) For Visit Diagnoses Date Provider Providers Copied on Encounter [facility], [address], [place], [address], [place] tel:[phone] [facility] No Information 3 Clark Mario. [address], [place], [place], [id number] . tel:[phone] OFFICE/OUTPA TIENT VISIT EST [facility], [address], [address], [place] tel:[phone] [facility] Obesity, MorbidDietary surveillance and counselingLow Back Pain 4 Zacarias Mckeon. [address], [place], [place], [id number] . tel:[phone] Referring Provider: Rosa Espinosa [facility] [address], [place], [address]. tel:[phone] OFFICE/OUTPA TIENT VISIT EST [facility], [address], [address], tel:[phone] [facility] Obesity, MorbidDietary surveillance and counselingLow Back Pain 3 Zacarias Mckeon. [address], [place], [place], [id number] . tel:[phone] Referring Provider: Rosa Espinosa [facility] [address], [place], [address]. tel:[phone] OFFICE/OUTPA TIENT VISIT EST [facility], [address], [address], [place] tel:[phone] [facility] Obesity, MorbidDietary surveillance and counselingHyperte nsion, Unspecified 3 Zacarias Mckeon. [address], [place], [place], [id number] . [phone] Referring Provider: Rosa Espinosa [facility] [address], [place], [address]. tel:[phone] [facility], [address], [address], [place] tel:[phone] [facility] Obesity, MorbidDietary surveillance and counselingHyperte nsion, Unspecified 3 Zacarias Mckeon. [address], [place], [place], [id number] . tel:[phone] Referring Provider: Rosa Espinosa [facility] [address], [place], [address]. tel:[phone] [facility], [address], [address], [place] tel:[phone] [facility] Obesity, MorbidDietary surveillance and counselingHyperte nsion, Unspecified 3 Adames Mike. [address] , [place], [place], [id number] . tel:[phone] Referring Provider: Rosa Espinosa [facility] [address], [place], [place], [facility]. tel:[phone] [facility], [address], [address], [place] tel:[phone] [facility] [place] Obesity, MorbidDietary surveillance and counselingHyperte nsion, Unspecified 3 Adames Mike. [address] [place], [place], [id number] . tel:[phone] Referring Provider: Rosa Espinosa [facility] [address], [place], [address]. tel:[phone] OFFICE/OUTPA TIENT VISIT EST [facility], [address] [facility] [address], [address], [place] tel:[phone] [facility] Obesity, MorbidDietary surveillance and counselingHyperte nsion, Unspecified 3 Adames Mike. [address] , [place], [place], [id number] . tel:[phone] Referring Provider: Rosa Espinosa [facility] [address], [place], [address]. tel:[phone] OFFICE/OUTPA TIENT VISIT EST [facility], [address] [address], [place], [address], [place] tel:[phone] [facility] LBP and left sciatica (chief complaint) Postlaminectomy syndrome of lumbar regionRadiculitis , Thoracic or LumbarDegeneratio n of lumbar or lumbosacral intervertebral disc Oct-0 1-201 2 Eduardo Martin. [address], [place], [id number] . tel: [phone] Referring Provider: Rosa Espinosa [facility] [address], [place], [place], [facility]. tel:[phone] OFFICE/OUTPA TIENT VISIT EST [facility], [address], [facility], tel:[phone] [facility] LBP and left sciatica (chief complaint) Radiculitis, Thoracic or LumbarDegeneratio n of lumbar or lumbosacral intervertebral discPostlaminecto my syndrome of lumbar regionSpinal stenosis of lumbar region Sep-1 7-201 2 Eduardo Martin. [address] [facility], [place], [place], [id number] . tel: [phone] Referring Provider: Rosa Espinosa [facility] [address], [place], [place], [facility]. tel:[phone] OFFICE/OUTPA TIENT VISIT EST [facility], [address] [address], [place], [address], [place] tel:[phone] [facility] Obesity, MorbidDietary surveillance and counselingHyperte nsion, Unspecified Sep-1 0-201 2 Zacarias Mckeon. [address] [place], [place], [id number] . tel: [phone] Referring Provider: Rosa Espinosa [facility] [address], [place], [place], [facility]. tel:[phone] OFFICE/OUTPA TIENT VISIT NEW [facility], [address] [address], [place], [address], [place] tel:[phone] [facility] My back and right leg hurt (chief complaint) Hypertension, UnspecifiedObesit y, MorbidDietary surveillance and counselingHyperte nsion, UnspecifiedRadicu litis, Thoracic or Lumbar Sep-0 5-201 2 Zacarias Mckeon. [address], [place], [id number] . tel: [phone] Referring Provider: Rosa Espinosa [facility] [address], [place], [address]. tel:[phone] Family History Family Member Type Diagnosis Age At Onset Problem (finding) Family history of Heart disease Problem (finding) Family history of hyper tension Problem (finding) Family history of gout Problem (finding) Family history of Diabe richard mellitus Problem (finding) Family history of Cance r Payers Payer name Insurance type Covered green party ID Authorarmando kyle(s) Blue Access PPO E2 OT [id number] Social History Type Description Quantity Date Captured Comments Sex Female Smoking Status No Information Chief Complaint And Reason For Visit No Information Reason For Referral Reason For Referral No Information Plan Of Treatment Date Type Action Status Referral Ordered: INJ FORAMEN EPIDURAL L/S LT spine, lumbar Appointment date/timeframe: 03/09/2012 ordered Referral Ordered: RADEX SPI LUMBOSAC 2/3 VIEWS ordered Referral Ordered: MRI SPI CANAL&CNTS C-/C+ LMBR Appointment date/timeframe: 03/02/2012 ordered History Of Present Illness Encounter Date Complaint History Of Prese nt Illness No Information Functional Status Date Functional Assessmen t No Information Instructions Date Instruction Additional Infor erin Activity as tolerated OTC anti-inflammatories (NSAIDs) Dietary counseling Related to Di etary surveillance counseling OTC Medication Do not stop meds whe n symptoms resolve Follow exercise program Activity as tolerated Take new medication as prescribe d Dietary counseling Related to Di etary surveillance counseling Activity as tolerated OTC Medication OTC anti-inflammatories (NSAIDs) Dietary counseling Related to Di etary surveillance counseling OTC anti-inflammatories (NSAIDs) Activity as tolerated OTC Medication Dietary counseling Related to Di etary surveillance counseling Activity as tolerated walk as much as possible OTC Medication Dietary counseling Related to Di etary surveillance counseling Take medications with food Potential for medication abuse Do not stop meds whe n symptoms resolve Activity as tolerated Take new medication as prescribe d Dietary counseling Related to Di etary surveillance counseling OTC Medication OTC Medication Activity as tolerated Dietary counseling Related to Di etary surveillance counseling Do not stop meds whe n symptoms resolve Activity as tolerated Dietary counseling Related to Di etary surveillance counseling Activity as tolerated OTC anti-inflammatories (NSAIDs) Dietary counseling Related to Di etary surveillance counseling Dietary counseling Related to Di etary surveillance counseling Assessments Type Assessment Date No Information Patient Care Teams Name Effective Dates (start - stop) Status Members No Information
--- OUTSIDE RECORDS SUMMARY | 2024-10-06 11:58 | XMS_ITS | Continuity of Care Document ---
Author Organization [facility] Address [address] [facility] [place] [address] Phone Care Team Providers Care Airplane Pilot Photogrammetry Name Role Phone Isaiah Rose MD Unavailable Unavailable Advance Directives Directive Yes / No Effective Date File Name No Information Encounters Encounter Description Practice Location Reason(s) For Visit Diagnoses Date Provider Providers Copied on Encounter [facility], [address] [place] [id number], [place] tel:[phone] [facility] No Information [facility]. [address] [facility] [place], [place], [id number], [place]. tel:[phone] Family History Family Member Type Diagnosis Age At Onset No Information Payers Payer name Insurance type Covered constitution party ID Authoriza tion(s) No Information Social History Type Description Quantity Date Captured Comments Sex Female Smoking Status No Information Chief Complaint And Reason For Visit No Information Plan Of Treatment Date Type Action Status No Information History Of Present Illness Encounter Date Complaint History Of Prese nt Illness No Information Instructions Date Instruction Additional Infor mation No Information Assessments Type Assessment Date No Information
--- OUTSIDE RECORDS SUMMARY | 2024-10-06 11:58 | XMS_ITS | Referral Summary ---
Author Organization [facility] [address] Address [address] [place] [id number] Care Team Providers Care Drilling Contractor Name Role Phone Costa Jacinto MD Primary Care Provider [phone] Allergies Active Allergy Reactions Criticality Noted Date [...] Active Active Problems No known active problems Social History Tobacco Use Types Packs/Day Years Used Date Smoking Tobacco: Never Assessed Comments Unknown Sex and Gender Information Value Date Recorded Sex Assigned at Not on file Legal Sex Female 12:57 AM CLINICAL MEDICAL ASSISTANT Gender Identity Female 02/26/2022 8:57 AM CDT Sexual Orientation Not on file Last Filed Vital Signs Vital Sign Reading Time Taken Comments Blood Pressure 130/90 07/29/2023 6:21 PM CLINICAL MEDICAL ASSISTANT Pulse 79 07/29/2023 6:21 PM CLINICAL MEDICAL ASSISTANT Temperature 36.9 C (98.4 F) 07/29/2023 6:21 PM CLINICAL MEDICAL ASSISTANT Respiratory Rate 20 07/29/2023 6:21 PM CLINICAL MEDICAL ASSISTANT Oxygen Saturation 98% 07/29/2023 6:21 PM CLINICAL MEDICAL ASSISTANT Inhaled Oxygen Concentration - - Weight 96.6 kg (213 lb) 07/29/2023 6:21 PM CLINICAL MEDICAL ASSISTANT Height 152.4 cm (5') 07/29/2023 6:21 PM CLINICAL MEDICAL ASSISTANT Body Mass Index 41.6 07/29/2023 6:21 PM CLINICAL MEDICAL ASSISTANT Plan of Treatment Not on file Insurance [facility] [place] [employer] Care Teams Drilling Contractor Relationship Specialty Start Date End Date Costa Jacinto MD [address] [place] [address] PCP - General Family Medicine 02/26/22
== END 2024-10-06 10:42 | disposition home or self-care (01) ==
LOC: ANHAUDIO 10:42
PROVIDERS: PCP Family Medicine; Visit Provider Otolaryngology Otolaryngology/Facial Plastic Surgery
DX: H90.42 Sensorineural hearing loss, unilateral, left ear, with unrestricted hearing on the contralateral side (principal); H93.19 Tinnitus, unspecified ear
CPT/HCPCS: 92557; 92567

== ENCOUNTER 2025-01-12 13:36 | Outpatient (CLI) | payer BC, SELFPAY ==
--- NOTE | ~2025-01-12 | MR_ITS ---
EXAMINATION: MR IAC wo/w con DATE: 01/12/2025 14:57 INDICATION: Bilateral sensorineural hearing loss. TECHNIQUE: Magnetic resonance imaging (MRI) of the brain, brainstem and internal auditory canals was performed without and with 18 mL Multihance intravenous contrast. Sequences included sagittal and axi al T1-weighted FSE, axial diffusion-weighted FS EPI, axial T2*-weighted GRE, axial T2-weighted FLAIR Propeller, axial T2-weighted Propeller, small nbvvt-oc-grct coronal FIESTA, small szklx-ni-vywp coron al T1-weighted FSE, and small wjvkm-jh-bfzr axial 3D T1-weighted MALIK. Postcontrast sequences includ ed axial T1-weighted FSE, small jmitc-yt-jzsr coronal T1-weighted FSE, and small hcfzc-ak-bwzq axial 3D T1-weighted MALIK. Apparent diffusion coefficient (ADC) maps were created. COMPARISON: None. FINDINGS: There are no areas of restricted diffusion to suggest acute infarction. No intracranial hemorrhage or abnormal intracranial mass lesion. There are scattered areas of nonspecific increased T2-weighted si gnal intensity in the cerebral white matter, predominantly involving the deep and periventricular whi te matter. There are no intraparenchymal signal abnormalities seen on the other pulse sequences. The ventricles are symmetric and normal in size. There are no abnormal extra-axial fluid collections. Nor mal seventh/eighth cranial nerve complexes. No cerebellopontine angles masses. No evidence of masto id or middle ear fluid. Flow voids are seen in the cerebral arteries on the T2-weighted sequences and contrast enhancement on the post contrast imaging consistent with their expected patency. The bilate ral jugular bulbs are high riding extending cephalad to the above the midpoint of the left cochlea an d above the inferior margin of the basal turn of the right cochlea. Mild mucosal thickening the bilat eral ethmoid sinuses. Visualized orbits and soft tissues are unremarkable. There are no areas of abno rmal enhancement on the post contrast images. IMPRESSION: 1. Normal brain with no acute intracranial process. 2. Bilateral high riding jugular bulbs, left greater than right. Otherwise unremarkable temporal bone s and internal auditory canals with normal bilateral 7th and 8th cranial nerve complexes and no impin ging masses. Reviewed, dictated and finalized at location A. IMPRESSION: 1. Normal brain with no acute intracranial process. 2. Bilateral high riding jugular bulbs, left greater than right. Otherwise unre markable temporal bones and internal auditory canals with normal bilateral 7th and 8th cranial nerve complexes and no impinging masses.
== END 2025-01-12 13:37 | disposition home or self-care (01) ==
LOC: MICIMG 13:37
PROVIDERS: PCP Family Medicine; Visit Provider Otolaryngology Otolaryngology/Facial Plastic Surgery
DX: H90.3 Sensorineural hearing loss, bilateral (principal)
CPT/HCPCS: 70553; A9577